=== PATIENT | female | born 1955 | race Caucasian/White ===

== ENCOUNTER 2017-02-27 05:51 | Day surgery (SDC) | payer OTHER ==
[2017-02-27 06:34] VITALS: O2SAT 100
[2017-02-27] MEDS ORDERED: Lactated Ringers 1,000 ML IV SCH (07:00)
[2017-02-27] MEDS ORDERED: Ketamine HCl 50 MG/ML IJ ONE (08:00)
[2017-02-27] MEDS ORDERED: DIPRIVAN 200 MG/20 ML IV ONE (08:00)
[2017-02-27 08:48] VITALS: BP 147/76; PULSE 68
== END 2017-02-27 08:30 | disposition home or self-care (01) ==
LOC: SDC 05:51
PROVIDERS: ATTEND Family Medicine
PROC: 0DJD8ZZ Inspection of Lower Intestinal Tract, Via Natural or Artificial Opening Endoscopic (ICD-10-PCS; principal; 2017-02-27)
DX: Z12.11 Encounter for screening for malignant neoplasm of colon (principal); K57.30 Diverticulosis of large intestine without perforation or abscess without bleeding
CPT/HCPCS: 00810; J2704